=== PATIENT | female | born 1940 | race Caucasian/White ===

== ENCOUNTER → 2024-09-25 09:31 | Outpatient (REF) | payer OTHER, SELFPAY | LOC: RAD 09:31 | PROVIDERS: ATTENDING PHYSICIAN Student in an Organized Health Care Education/Training Program; FAMILY PHYSICIAN Family Medicine | DX: I35.0 Nonrheumatic aortic (valve) stenosis (principal); R09.89 Other specified symptoms and signs involving the circulatory and respiratory systems | CPT/HCPCS: 75572; Q9967 ==

== ENCOUNTER → 2024-10-01 11:15 | Day surgery (SDC) | payer OTHER, SELFPAY ==
[2024-10-01] VITALS (9 sets, daily range): BP systolic 121–168; BP diastolic 48–86
[2024-10-01 12:06] LABS: ALT (SGPT) 20 U/L (0-35); AST (SGOT) 31 U/L (14-36); Albumin 5.1 g/dl (3.5-5.0); Alkaline Phosphatase 98 U/L (38-126); Blood Urea Nitrogen 23 mg/dl (7-17); Calcium 11.3 mg/dl (8.4-10.2); Carbon Dioxide 25 mmol/L (22-30); Chloride 109 mmol/L (98-107); Glucose 114 mg/dl (70-99); Potassium 5.2 mmol/L (3.5-5.1); Sodium 145 mmol/L (135-145); Total Bilirubin 0.8 mg/dl (0.2-1.3); Total Protein 8.7 g/dl (6.3-8.2); eGFR > 60.00
--- NOTE | 2024-10-01 14:41 | ITS.CL.PN ---
Hardwood Floor Installation Helper - Procedure Note
Procedure
Procedure Note:
CARDIAC CATHETERIZATION REPORT
Date of Procedure: 10/01/2024
Referring: Dr. Dao Gibson MD
Indication: Symptomatic severe aortic stenosis
PROCEDURE(S)
1. right heart catheterization
2. left heart catheterization
3. coronary angiography
ACCESS
1. 6F right common femoral artery (closure: Perclose x1; note: right radial is too small for 6F access)
2. 5F right antecubital vein (closure: manual hemostasis)
CATHETERS
1. 5F [place]zy
2. 6F [place]
3. 6F JR4
4. 6F JL3.5
MODERATE SEDATION: 30 minutes of moderate sedation was utilized. An independent bilingual medical receptionist was present to assist with and help manage the patient's level of consciousness and physiologic status.
HEMODYNAMIC DATA
LV 192/12 (EDP 24) mmHg
AO 158/62 (mean 101) mmHg
RA 10 mmHg
RV 32/6 (EDP 12) mmHg
PA 37/17 (mean 25) mmHg
PCWP 18 mmHg
SaO2 97.0%
SvO2 75.0%
Hb 13.2 g/dL
CO/CI 4.57/3.17 L/min/m2
SVR 1594 dsc*-5
PVR 1.5 Wood units
Valve study: mean gradient 39.24 mmHg at HR 62 giving SVI 51 mL/m2 and CATRACHITA 0.80 cm2
CORONARY ANGIOGRAPHY
Dominance: Right
LM: Large, normal
LAD: Large vessel giving rise to a small D1 and small D2. There are mild luminal irregularities only
LCx: Large vessel giving rise to a small OM1 and large branching OM 2. There are trivial luminal irregularities only.
RCA: Moderate caliber vessel giving rise to a small RPDA. There is mild nonobstructive disease.
RADIATION: dose 182 mGy; DAP 11.9 Gy*cm2; fluoroscopy time 5.2 min
CONCLUSIONS
1. Nonobstructive coronary artery disease in a right dominant system as described
2. Mildly elevated biventricular filling pressures, mild pulmonary hypertension, and normal cardiac output
3. Severe normal flow aortic stenosis
RECOMMENDATIONS
1. Primary prevention of coronary artery disease
2. Proceed with TAVR evaluation and workup of lung masses identified on CT TAVR
Copy to: Dr. Dao Gibson MD (case planner); Dr. Xochilt Gross DO (PCP)
Signed: Sandro Lima MD, PhD
--- NOTE | 2024-10-01 16:27 | PTCARENOTE ---
Assuming care for pt. D/C instructions provided, pt and pt's daughter have numerous questions about d/c instructions. Betsy Mack notified and will be over to talk to pt and family and answer questions. Pt c/o R posterior thigh discomfort, RLE
repositioned and medicated with Tylenol. Pt's R groin WNL, soft, no bleeding, no hematoma, small area of ecchymosis noted at bottom of dressing. R brachial dressing C,D,I- no bleeding, no hematoma noted.
VSS. Pt tolerating po liquids. Purewick in place and pt voided.
--- NOTE | 2024-10-01 16:59 | PTCARENOTE ---
Dr Lima and HARISH Andrea, at pt's bedside answering questions.
--- NOTE | 2024-10-01 17:23 | PTCARENOTE ---
Pt ambulated to bathroom and voided. R groin site unchanged, no bleeding, no hematoma, ecchymosis unchanged. R brachial site WNL, no bleeding, no hematoma, no ecchymosis noted. D/C instructions given with good verbal feedback.
== END | disposition home or self-care (01) ==
LOC: CATH 11:15
PROVIDERS: ATTENDING PHYSICIAN Student in an Organized Health Care Education/Training Program; FAMILY PHYSICIAN Family Medicine; OTHER PHYSICIAN Internal Medicine Cardiovascular Disease
DX: I35.0 Nonrheumatic aortic (valve) stenosis (principal); I25.10 Atherosclerotic heart disease of native coronary artery without angina pectoris; I27.20 Pulmonary hypertension, unspecified; I10 Essential (primary) hypertension; E78.5 Hyperlipidemia, unspecified; E83.52 Hypercalcemia; R91.8 Other nonspecific abnormal finding of lung field
CPT/HCPCS: 99152; 99153; 80053; 93005; 93460; C1760; C1769; C1894; Q9967

== ENCOUNTER → 2024-10-09 10:49 | Outpatient (REF) | payer OTHER, SELFPAY | LOC: RAD 10:49 | PROVIDERS: ATTENDING PHYSICIAN Nurse Practitioner Acute Care; FAMILY PHYSICIAN Family Medicine | DX: I35.0 Nonrheumatic aortic (valve) stenosis (principal) | CPT/HCPCS: 74174; Q9967 ==

== ENCOUNTER 2024-12-17 05:28 | Inpatient (IN) | payer OTHER, SELFPAY ==
--- NOTE | 2024-12-08 08:33 | HPS.HSE ---
Family Physician
-
Family Physician: Xochilt Gross
Chief Complaint
-
SOB, LE edema
PreTAVR evaluation
History of Present Illness
Ms. Rizzo is a very pleasant 84 yof with a past medical history significant for , HT, HLD, osteoporosis, Paget's disease, and� uterine ca. Her most recent echocardiogram from 09/07/2024 is notable for an EF 70%, aortic valve P/M 71/46, CATRACHITA 0.7,
DI 0.25, trivial AI, moderate MAC, trace-mild MR, mild TR, PAP 42. Her echocardiogram from 10/01/2024 demonstrates nonobstructive CAD. During TAVR work-up lung masses were found on CT. Patient was recommended to follow up with pulmonology. From a
symptomatology standpoint, patient describes BAUGH while climbing stairs. She also states she has had increased LE edema.Patient will continue follow up with pulmonology in tandem with the heart team to develop a plan of care. Informed patient that
she will need life-long antibiotic prophylaxis for future dental procedures.
Assessed patient in preadmission testing and confirmed medication list. Will initiate 81 mg aspirin daily to including the morning of TAVR. Will premedicate for contrast allergy with 50 mg prednisone 13,7,1 hour before TAVR and Benadryl 50 mg 1 hour
before TAVR (prescription given). Ms. Rizzo will arrive to the [facility] at 0530. Reviewed the risks of the procedure as discussed in consult with Dr. Brizuela including ppm, stroke, and vascular injury. Allowed for and answered questions to
the best of my ability.
Medical History
Past Medical History
Past Medical History: Reports Cancer (endometrial), HTN, Valvular Disease (Aortic stenosis, moderate MAC), Psychiatric (depression) and Other (hyperlipidemia, hypercalcemia, bilateral carotid bruits, Pagets disease)
Past Surgical History: Reports Appendectomy, Gynocological (hysterectomy, oopherectomy), Orthopedic (carpal tunnel surgery, medial meniscus surgery, left femur surgery) and Other (cataract surgery)
Social History
Tobacco: Non-smoker
Alcohol: None
Drug: None
Personal:
Living: Alone
Employment: Retired
Family History
Family History: Hypertension and Other (heart disease)
Allergies / Home Medications
Allergies reflects when Allergies were last updated in [facility].
fosamax, actonel, meloxicam, shingrex, contrast dye
[facility]
Alivia Allergy(Fexofenadine HCl) 60 MG Tablet 1 tablet Orally Twice a day
Atenolol 100 MG Tablet 1 tablet Orally Once a day
Calcium + Vitamin D3(Calcium Carb-Cholecalciferol) 600-5 MG-MCG Tablet 1 tablet with a meal Orally bid
Felodipine ER 10 MG Tablet Extended Release 24 Hour 1 tablet Orally Once a day
Gemfibrozil 600 MG Tablet 1 tablet 30 minutes before morning and evening meals Orally Twice a day , Notes to Pharmacist: Lopid
Multivitamin(Multiple Vitamin) - Tablet 1 tablet Orally Once a day
Pravastatin Sodium 40 MG Tablet 1 tablet Orally Once a day
Tylenol , Notes to Pharmacist: prn
Aspirin 81 mg daily (initiated 12/08/2024)
Allergy/Medication List:
fosamax, actonel, meloxicam, shingrex, contrast dye
Review of Systems
-
A 12 point ROS was completed and negative except as noted: Yes
Constitutional: Reports Fatigue
Respiratory: Reports Other (BAUGH)
Physical Exam
Physical Exam
General: Well Developed, Well Nourished, No Apparent Distress and Comfortable
HEENT: NormoCephalic
Respiratory: Clear
Cardiac: Regular Rhythm and Murmur (III/ AISHA)
Breast: Deferred by me
Rectal: Deferred by Provider
Genito-urinary: Deferred by me
Musculoskeletal: Edema, Left Lower Extremity (trace) and Edema, Right Lower Extremity (Trace)
Skin: Warm and Dry
Neuro: Awake, Alert, Oriented and AO x 3
Psych: Calm
Data Reviewed
-
Diagnostic Radiology: Report Reviewed by me
CT Scan: Report Reviewed by me and Discussed with Physician (TAVR CT scan reviewed with the heart team)
Medical Tests (Nuc Med, Echo, EKG etc): Report Reviewed by me and Discussed with Physician (echocardiogram and cardiac catheterization reviewed with the heart team)
Lab Data: Labs Reviewed by me
Old Records: Reviewed
Impression/Plan
-
IMPRESSION/PLAN:
Aortic Stenosis
TF TAVR planned with Drs. Brizuela and Clarence utilizing a 23 mm S3.
Initiate 81 mg aspirin daily and continue including the morning of TAVR
Premedicate for contrast allergy (Rx given)
POD#1/#30 echocardiogram
Cardiac rehab consult.
Labs
-
Labs:
WBC 6.4 10^3/uL (4.8-10.8) 12/08/24 10:02
RBC 4.40 10^6/uL (4.20-5.40) 12/08/24 10:02
Hgb 13.6 g/dL (12.0-16.0) 12/08/24 10:02
Hct 38.4 % (37.0-47.0) 12/08/24 10:02
Plt Count 313 10^3/uL (130-400) 12/08/24 10:02
Sodium 143 mmol/L (135-145) 12/08/24 10:02
Potassium 3.9 mmol/L (3.5-5.1) 12/08/24 10:02
Chloride 109 mmol/L (98-107) H 12/08/24 10:02
Carbon Dioxide 21 mmol/L (22-30) L 12/08/24 10:02
BUN 20 mg/dl (7-17) H 12/08/24 10:02
Creatinine 0.8 mg/dL (0.6-1.0) 12/08/24 10:02
eGFR > 60.00 08/19/25 10:02
Glucose 101 mg/dl (70-99) H 12/08/24 10:02
Calcium 10.7 mg/dl (8.4-10.2) H 12/08/24 10:02
Ead-S-Bytpnvrxtit Pept 1240 pg/ml 12/08/24 10:02
Albumin 5.0 g/dl (3.5-5.0) 12/08/24 10:02
[2024-12-08 09:45] VITALS: BMI 25.1
[2024-12-08 10:25] LABS: Hematocrit 38.4 % (37.0-47.0); Hemoglobin 13.6 g/dL (12.0-16.0); Mean Corp Hgb Conc. 35.4 g/dL (33.0-37.0); Mean Corpuscular Volume 87.3 fL (81.0-99.0); Nucleated Red Blood Cells % 0 %; Platelet Count 313 10^3/uL (130-400); Red Cell Dist. Width 12.8 % (11.5-14.5)
[2024-12-08 10:34] LABS: INR 1.09; PT 14.4 Sec (11.4-14.6)
[2024-12-08 10:40] LABS: Urine Character Slightly Cloudy (Clear)
[2024-12-08 11:12] LABS: ALT (SGPT) 16 U/L (0-35); AST (SGOT) 23 U/L (14-36); Albumin 5.0 g/dl (3.5-5.0); Alkaline Phosphatase 84 U/L (38-126); Blood Urea Nitrogen 20 mg/dl (7-17); Calcium 10.7 mg/dl (8.4-10.2); Carbon Dioxide 21 mmol/L (22-30); Chloride 109 mmol/L (98-107); Estimated Creatinine Clearance 38 ml/min; Glucose 101 mg/dl (70-99); Potassium 3.9 mmol/L (3.5-5.1); Sodium 143 mmol/L (135-145); Total Protein 7.7 g/dl (6.3-8.2); eGFR > 60.00
[2024-12-08 11:22] LABS: Glycohemoglobin (HgbA1c) 4.9 % (4.0-5.6)
[2024-12-08 11:31] LABS: Urine White Cell 40-50 /HPF (0-5)
--- NOTE | 2024-12-08 11:33 | CM ---
Met with Mrs. Rizzo in [facility]. She states prior to admission she readies alone in a three story home with four steps to enter. She states she has a full flight of steps to get to bedroom/full bathroom. She states she has a powder room on the
first floor. She states prior to admission she was independent with ambulation and adls. She states she does not have any DME in the home. She states she has a prescription. She states she is planning on staying with her daughter Romana for the
weekend after her TAVR. Address for daughter Danyelle is [address] [place] [address]. [phone], Her phone number is ([phone]). The discharge plan is to stay withher daughter over the weekend and a home visit by the Transitional Care Nurse when
medically stable.
We reviewed pre-op and post-op routines. We reviewed the shower instructions. She has the soap, written instructions and the TAVR Educational Booklet. We also reviewed restrictions including driving and lifting restrictions. We discussed a home
visit by the Transitional Care Nurse. She is agreeable to a home visit. The plan is for TAVR on November.
[2024-12-17] VITALS (20 sets, daily range): BP systolic 89–148; BP diastolic 46–75; BMI 24.7
[2024-12-17] MEDS: BENADRYL 50 MG PO (06:15)
[2024-12-17] MEDS: DELTASONE 50 MG PO (06:15)
--- NOTE | 2024-12-17 06:24 | W.CVOR.SURPR ---
CVOR Surgeon Immed Pre Op
-
I have examined this patient prior to performance of the scheduled procedure.
The patient's condition is unchanged from the time of the dictated/written History and
Physical and the patient is able to undergo the scheduled procedure.
Pt. for TF TAVR this AM
Pt. decided she DOES NOT want surgical rescue
Would be amenable to ACLS (CPR & shocks) if necessary
--- NOTE | 2024-12-17 07:16 | PTCARENOTE ---
admitted pt into 2260. pt confirmed NPO status and 2 CHG showers. pt took ASA in am. pt clipped and washed with CHG wipes. Admission questions and med rec completed. ABO sent. PIV started. awaiting general laborer.
[2024-12-17 08:26] LABS: ACT-LR - POC 253 Seconds (116-155)
--- NOTE | 2024-12-17 08:49 | ITS.CL.PN ---
Rubber Splicer - Procedure Note
Procedure
Procedure Note:
TRANSCATHETER AORTIC VALVE REPLACEMENT REPORT
Date of Procedure: 12/17/2024
Referring: Dr. Dao Gibson MD
Indication: symptomatic severe aortic valve stenosis
Operators: Sandro Lima MD, PhD (interventional cardiology); Dr. Angelo Brizuela MD (CT surgery)
Anesthesia: conscious sedation provided by the anesthesia staff
PROCEDURE: transfemoral, transcatheter aortic valve replacement with an Quiñones MARGRET 3 Ultra RESILIA 20 mm valve +1.5 cc additional volume
ACCESS:
1. 6F left femoral vein (closure: manual hemostasis) - Ultrasound was utilized for vascular access. The vessel was visualized under ultrasound and noted to be patent. An image of the vessel was stored permanently in the patient's medical record.
Under direct ultrasound guidance, vascular access was obtained using a modified Seldinger technique and a 6 Cook Islander sheath was placed.
2. 6F left common femoral artery (closure: Angioseal) - Ultrasound was utilized for vascular access. The vessel was visualized under ultrasound and noted to be patent. An image of the vessel was stored permanently in the patient's medical record.
Under direct ultrasound guidance, vascular access was obtained using a modified Seldinger technique and a 6 [place] Islander sheath was placed.
3. 14F right common femoral artery (closure: Perclose x2) - Ultrasound was utilized for vascular access. The vessel was visualized under ultrasound and noted to be patent. An image of the vessel was stored permanently in the patient's medical
record. Under direct ultrasound guidance, vascular access was obtained using a modified Seldinger technique and a 8 [place] Islander sheath was placed.
HEMODYNAMIC DATA
LVEDP 18 mmHg
PROCEDURE NARRATIVE:
The patient was prepped and draped in standard sterile fashion. Conscious sedation was provided by the anesthesia staff. 6F left femoral vein and left common femoral artery access was obtained with ultrasound guidance using micropuncture technique
with verification of appropriate arteriotomy location via hand injection angiography. A temporary venous pacing wire was advanced via the left femoral vein to the right ventricle under fluoroscopic guidance with appropriate capture verified. A 5F
pigtail catheter was advanced via the left common femoral artery and seated in the right coronary cusp. Angiography was performed to verify the co-planar angle.
8F right common femoral artery access was obtained with ultrasound guidance using micropuncture technique with verification of appropriate arteriotomy location via hand injection angiography. The arteriotomy was preclosed with two Perclose sutures
followed by replacement of the 8F sheath. Using an AL1 catheter, an Amplatz Extrastiff wire was placed in the descending thoracic aorta. The 8F sheath was removed and the [ ]F Quiñones E-sheath was inserted over the Extrastiff wire and into the
descending aorta. Heparin 4500 units was given. The AL1 catheter was re-advanced through the E-sheath to the level of the ascending aorta. The Extrastiff wire was exchanged for a soft tipped straight wire which was used to cross the aortic valve and
deposit the AL1 in the LV apex. A J-wire was used to exchange the AL1 for a pigtail catheter in the LV and LVEDP was measured. An Amplatz Extrastiff wire with curved proximal end was advanced through the pigtail catheter and seated in the LV apex.
ACT was checked and confirmed to be >300 seconds.
The valve was brought to the table with orientation and deployment contrast volume verified. The valve was advanced over the Extrastiff wire and into the descending aorta. The balloon was withdrawn, and the valve was mounted on the balloon. The
valve was advanced over the aortic arch and into the aortic valve annulus. The pusher device was withdrawn. Low volume aortography confirmed valve positioning. The valve was deployed during rapid ventricular pacing with an additional 1 cc of volume
above nominal. The balloon was walked back to the descending aorta while leaving the wire in place. The patient was resuscitated by anesthesia with recovery of adequate blood pressure. Telemetry demonstrating sinus rhythm. Aortography demonstrated
good valve positioning, adequate coronary filling, and mild aortic valve insufficiency, but low diastolic BP (~40 mmHg) raising concern for more significant PVL. Echocardiography confirmed mild PVL. Mean valve gradient was 7 mmHg. Given the
significantly depressed diastolic BP with at least mild PVL on angio, we proceeded with BAV using the deployment balloon with an addition 0.5 cc volume (1.5 cc above nominal) under rapid pacing. This resulted in mild improvement in the degree of AI
on both angio and echo. Mean gradient and diastolic blood pressure remained unchanged. The valve deployment system was removed.
The Quiñones E sheath was removed, and hemostasis obtained with the two Perclose sutures. Protamine 30 mg was given. Aortoiliac angiography demonstrated no evidence of iliofemoral dissection/perforation and good runoff below the common femoral artery
bilaterally. The pacemaker and the pigtail catheter were removed. The left femoral artery sheath was removed using a 6F Angioseal. The left femoral venous sheath was removed with manual pressure.
RADIATION: dose 153 mGy; DAP 14.8 Gy*cm2; fluoroscopy time 8.2 min
CONCLUSION: successful placement of an Quiñones MARGRET 3 Ultra RESILIA 20 mm transcatheter aortic valve deployed with +1.5 cc additional volume with a right transfemoral approach with no acute complications
Copy to: Dr. Dao Gibson MD (outside b2b sales); Dr. Xochilt Gross DO (PCP)
Signed: Sandro Lima MD, PhD
--- NOTE | 2024-12-17 08:50 | W.IMMPOSTOP ---
Surgical Immed Post Op Note
-
[id number]
STRUCTURAL HEART PROCEDURE NOTE: TAVR
Preoperative Dx:
Severe aortic stenosis (P/M: 71/46mmHg, CATRACHITA 0.7, DI 0.25, trivial AI)
Lung masses
HTN/HLD
OA
Endometrial CA
Depression
B/L carotid bruits
Paget's disease
Hypercalcemia
Arthritis
Postoperative Dx:
Same
Procedures:
1) L VICE PRESIDENT RESEARCH and L CFV access w/ tactile, U/S, and fluoroscopic guidance, Seldinger technique, limited L VICE PRESIDENT RESEARCH angiography, long 6Fr sheath placement x 2
2) Placement of temporary TV pacing wire w/ threshold testing
3) Placement of pigtail catheter in RCC w/ limited aortography x 2 w/ confirmation/subtle adjustment of coplanar valve deployment angle
4) R VICE PRESIDENT RESEARCH access w/ tactile, U/S, and fluoroscopic guidance, Seldinger technique, 8Fr dilator placement, limited angiography, 8Fr sheath placement
5) Placement of Quiñones E-sheath via R VICE PRESIDENT RESEARCH access (systemic heparinization)
6) Wire purchase across stenotic AV (AL-1, soft-tip straight, LVEDP assessment (18mmHg), extra-stiff)
7) Inspection of TAVR valve
8) R TF TAVR w/ placement of 20mm (+1) MARGRET 3 RESILIA valve
9) Completion aortography, completion TTE - mid-mild PVL
10) Post-TAVR BAV (+1.5) w/ reduction of PVL to soft-mild, mean gradient 8mmHg
11) Removal of bkesl-jnygamgd-uhymzl/Quiñones E-sheath w/ R VICE PRESIDENT RESEARCH mgmt w/ perclose sutures x 2; manual pressure
12) Completion angiography
13) Removal of temporary pacing wire, subsequent removal of L CFV sheath; manual pressure
14) Removal L VICE PRESIDENT RESEARCH sheath w/ mgmt w/ 6Fr angioseal; manual pressure (protamine 30mg)
Jewel Bearing Maker:
Dr. Sandro Lima
Cardiac Surgeon:
Dr. Angelo Brizuela
Anesthesia:
MAC & local to B/L groins
Cath Data:
Start: 47hrs, Deploy: 816hrs, End: 841hrs
FT: 8.2min, mGy: 153, DAP: 14.8, Contrast: 102mL
Post-TTE: mean gradient 8mmHg, mild PVL
Complications:
None
Implants:
Quiñones SAPIEN3 20mm RESILIA; [id number]
Perclose x 2 to R VICE PRESIDENT RESEARCH
6Fr angioseal x 1 to L VICE PRESIDENT RESEARCH
Condition:
Stable/guarded to recovery
--- NOTE | 2024-12-17 08:51 | CM ---
pt for TAVR today, cm following
--- NOTE | 2024-12-17 09:31 | PTCARENOTE ---
Patient received from CCL s/p TF TAVR procedure. NSR w/1st degree via cm, SaO2 @ 96% on 4lnc. B/L groin sites stable, bleeding noted, distal pulses weakly palp. Slight ecchymosis/petechiae noted to upper L thigh, R puncture area. Patient sleepy but
arousable, AUGUSTINE, denies pain - updated to plan of care for the day, in agreement. See work list for full assessment and interventions performed.
[2024-12-17] MEDS: ANCEF 10 IV ×2 (09:34→09:35)
--- NOTE | 2024-12-17 11:09 | PTCARENOTE ---
JORY Roger updated to rhythm.
--- NOTE | 2024-12-17 13:10 | PTCARENOTE ---
Patient assisted oob to chair, tolerated well. VSS. B/L groin sites unchanged.
[2024-12-17] MEDS: ANCEF 5 IV (14:20)
--- NOTE | 2024-12-17 16:03 | PTCARENOTE ---
VS obtained, assessment unchanged. Patient oob in chair, reading, denies pain.
--- NOTE | 2024-12-17 20:22 | PTCARENOTE ---
Assumed care of patient at 1900. Patient OOB to chair, ambulating in room without assistance, Vital Signs stable Alert and oriented X 4, Follows all commands, denies pain at this time. Heartrate 73, BP stable 146/57, pulses +, On Roomair, 97%
Lungs clear bilaterally, IS 1500, BS present ate 100% of dinner, Voids without issue. Grion sites, CDI, no hemotomas. see workflow for more detail assesment data.
[2024-12-17] MEDS: PRAVACHOL 40 MG PO (22:03)
[2024-12-17] MEDS: NORVASC 10 MG PO (22:03)
[2024-12-17] MEDS: TENORMIN 100 MG PO (22:04)
--- NOTE | 2024-12-17 22:32 | PTCARENOTE ---
patient bathed,CHG bath completed, ambulated oin room, denture care comp-leted, Vital sign stable, groin site clena dry and intact
[2024-12-18] VITALS (7 sets, daily range): BP systolic 126–144; BP diastolic 56–67; PULSE 70; O2SAT 51–95; BMI 25.1
--- NOTE | 2024-12-18 00:18 | W.PN.CT ---
Today's Communication / Plan
-
-No overnight events
-short episode of sinus bradycardia to the 50s noted post op, resolved spontaneously and currently NSR in the 70s
-s/p macrobid for E. coli UTI
-ASA only per Dr. Brizuela
-continue pravastatin, amlodipine, can likely resume atenolol
-OOB/IS
Assessment / Plan
-
Severe (P/M 71/46 mmHg, CATRACHITA 0.7, DI 0.25) s/p R TF TAVR (Ramya 3 20 mm Resilia) with Dr. Brizuela on 12/17/24 POD #1
post ALAN mild PVL, MG 7-8 mmHg
HTN
HLD
OA
Lung masses
endometrial CA
depression
paget's disease
hypercalcemia
Pre-op E. coli UTI
acute post op respiratory insufficiency
acute post op sinus bradycardia, resolved spontaneously
Subjective
-
Date of Service: December 18, 2024
Objective Data
-
PT 14.4 Sec (11.4-14.6) 12/08/24 10:02
INR 1.09 12/08/24 10:02
Vital Signs
Vital Signs
Temp Pulse Resp BP Pulse Ox
98.2 F 73 18 142/106 97
12/17/24 15:58 12/17/24 22:04 12/17/24 20:30 12/17/24 22:04 12/17/24 20:38
CT Intake/Output/Weight
12/17/24 12/17/24 12/18/24
06:59 18:59 06:59
Intake Total 480 / 680 200 / 680
Output Total 775 / 775
Balance -295 / -95 200 / -95
SaO2: 97
Physical Exam
-
General: Awake, Oriented and AOx3
Cardiovascular: Regular rate & rhythm and No Murmurs
Respiratory: Clear and Equal
Incision: Clean, Dry, Intact and Other (groin access soft)
Extremities: No Edema
Data Reviewed
-
Lab Results: Results Reviewed
Medications: Active Meds Reviewed
CT Scan: Report Reviewed
ECG: Report Reviewed
[2024-12-18] MEDS: TYLENOL 650 MG PO (04:18)
[2024-12-18 04:25] LABS: Hematocrit 32.7 % (37.0-47.0); Hemoglobin 11.8 g/dL (12.0-16.0); Mean Corp Hgb Conc. 36.1 g/dL (33.0-37.0); Mean Corpuscular Volume 87.4 fL (81.0-99.0); Platelet Count 266 10^3/uL (130-400); Red Cell Dist. Width 13.1 % (11.5-14.5)
[2024-12-18 04:49] LABS: Blood Urea Nitrogen 28 mg/dl (7-17); Calcium 9.6 mg/dl (8.4-10.2); Carbon Dioxide 23 mmol/L (22-30); Chloride 111 mmol/L (98-107); Estimated Creatinine Clearance 37 ml/min; Glucose 110 mg/dl (70-99); Potassium 3.6 mmol/L (3.5-5.1); Sodium 142 mmol/L (135-145); eGFR > 60.00
--- NOTE | 2024-12-18 05:27 | PTCARENOTE ---
Patient resting, given Tylenol for back pain, Labs drawn and sent, ECG done, Xray completed.
--- NOTE | 2024-12-18 07:56 | W.PN.ANS.POP ---
Anesthesia Post Operative
- Anesthesia Post Op Note
Vital Signs Stable-See Nursing Note: Yes
Airway Patent: Yes
Adequate Pain Control: Yes
Change in Mental Status: No
Current Postoperative Nausea & Vomiting: No
Anesthesia Complications: No
General Anesthetic Recall: No
Unplanned Admission: No
Post Op Hydration Adequate: Yes
--- NOTE | 2024-12-18 08:00 | PTCARENOTE ---
pt received from previous RN, oriented, [facility], +hearing aids. SB/SR w/ prolonged QT on the monitor, HR 50-60s. SBP 130s. palpable radial pulses, weakly palpable DPs. pt on RA, 97% POX. lungs clear. IS encouraged. denies cough or SOB. abdomen s/n,
denies n/v. +BS. diet tolerated well. voids. ambulates independently. b/l groins intact, old drainage in place, no s/s of hematoma. +L thigh petechiae, XANDER Rivera aware. PIV x2. pt denies pain. see worklist for VS, I&O, and assessment.
[2024-12-18] MEDS: ASPIR LOW (ENTERIC COATED) 81 MG PO (08:25)
[2024-12-18] MEDS: KCL 40 MEQ PO (08:25)
--- NOTE | 2024-12-18 11:08 | W.DCSUMMARY ---
Discharge Summary
Discharge Data
Date of Admission: 12/17/24
Date of Discharge: 12/18/24
-
Pending Results: No
Hospital Course
Primary care physician: Xochilt Gross
Outpatient dehydrogenation converter helper: Dao Gibson
Inpatient consultants: [facility]
Procedures:
1. 12/17/24 right transfemoral TAVR #20 +1 Quiñones S3 by Drs. Musa Brizuela & Patrick Lima
Primary Diagnosis:
1. Severe aortic stenosis
2. Chronic heart failure with preserved EF
Secondary Diagnoses:
1. Hypertension
2. Hyperlipidemia
3. Osteoarthritis
4. Lung masses
5. Endometrial cancer
6. Depression
7. Paget's disease
8. Hypercalcemia
9. Preoperative UTI, treated with Macrobid
10. Postop sinus bradycardia and first-degree AV block, both resolved
HPI: Patient is an 84-year-old female with known progressive aortic stenosis that is now severe. Most recent echo demonstrates hyperdynamic LVEF with peak and mean gradients of 71/46 mmHg respectively. Subsequent left heart catheterization
demonstrated no significant coronary disease. Patient was therefore referred for TAVR.
Hospital course: Patient was brought in electively on 12/17/2024 where she underwent a right transfemoral TAVR by Drs. Brizuela and Bernard without any complications. She was transferred to recovery without any vasoactive drips, postop EKG demonstrated
sinus bradycardia with a new first-degree AV block. She remained hemodynamically stable overnight, first-degree AV block has resolved, heart rate 67. Follow-up echo demonstrates a well-seated valve with a mean gradient of 5 and trace AI. Patient
is discharged to home with close follow-up with the transitional care nurse [facility] who will see her in a few days.
Home medication changes: New aspirin 81 mg daily for TAVR valve. Continue all other home meds.
Discharge Plan
-
Patient Disposition: Home (Routine Discharge)
Discharge Diagnosis/Procedures: right TF TAVR
Condition: Good
Diet: Low Fat, Low Cholesterol and 2 Gram Sodium
Activity: As tolerated
Driving Restrictions: No driving for 1 week
Bathing Restrictions: OK to Shower
Others Tests: 30-day follow up echocardiogram: 01/19/2025 @ 2:00 at the [facility].
Other Services: Cardiac Rehab
Wound Care: No lotions, powders, or creams to puncture sites
Specialty Instructions: Weigh Daily- Call MD for wt gain/loss 3 lbs overnight/5 lbs in 1 week
Referrals:
CT Transitional Care Nurse [Outside]
Referral Note: The CT Transitional care nurse will visit you at your daughters home in [place] and will call you to set up a visit in 1-2 days.
Xochilt Gross DO [Family Provider, Family Practice]
Dao Gibson MD [Active, Cardiology] - 01/18/25 1:00 pm
Prescriptions:
New
aspirin 81 mg Tablet,Delayed Release (Dr/Ec)
81 mg PO DAILY Qty: 0 0RF
acetaminophen 325 mg Tablet
650 mg PO Q6HPRN PRN (Reason: NELSON, mild pain, or fever >101F) Qty: 0 0RF
Continued
atenolol 100 mg Tablet
100 mg PO HS
felodipine 10 mg Tablet Extended Release 24 Hr
10 mg PO HS
multivitamin Tablet
1 tab PO DAILY Qty: 0 0RF
pravastatin 40 mg Tablet
40 mg PO HS Qty: 0 0RF
calcium carbonate-vitamin D3 600 mg-5 mcg (200 unit) Tablet
1 tab PO BID Qty: 0 0RF
gemfibrozil [Lopid] 600 mg Tablet
600 mg PO BID Qty: 0 0RF
Discharge Orders:
Discharge Patient (As Directed); Ordered 12/18/24
Ordered By: Nicole Dobbs
Care Plan Goals
Care Plan Goals:
Problem: Readiness for enhanced knowledge related to diagnosis and treatment plan
Goal: Understand your diagnosis and treatment plan needs, including medications if applicable.
Instructions: Know your diagnosis, underlying causes and treatment plan options, including medications if applicable. Consult with your health care team to learn about your diagnosis and treatment plan, including medications if applicable.
Discharge Date and Time
Discharge Date/Time: 12/18/24 13:11
Print Language: WELSH
--- NOTE | 2024-12-18 11:37 | PTCARENOTE ---
pt VSS, no changes in assessment. b/l groins remain unchanged, no s/s of bleeding or hematoma. ambulates independently. ECHO completed, stairs completed w/ CR. denies pain.
--- NOTE | 2024-12-18 12:37 | W.PN.CD ---
Today's Communication / Plan
-
routine post TAVR care
ok to discharge
Impression / Plan
-
84 year old woman with severe symptomatic s/p TF TAVR (Quiñones Ramya S3 Ultra Resilia 20 mm valve with +1.5cc air).
No overnight events. Feels well today.
Labs reviewed and unremarkable.
ECG sinus rhythm
Tele no heart block
Echo with mean gradient 5 mmHg, no PVL
Plan: routine TAVR care with ASA monotherapy, 1 month follow up echo; will follow with Dr. Dao Gibson.
Physical Exam
Vital Signs/Labs
Vital Signs
Temp Pulse Resp BP Pulse Ox
36.6 C 63 18 126/67 97
12/18/24 11:26 12/18/24 11:24 12/18/24 11:26 12/18/24 11:24 12/18/24 11:26
12/17/24 12/18/24 12/19/24
06:59 06:59 06:59
Actual Weight 53.6 kg 54.5 kg
12/18/24 04:05
12/18/24 04:05
PT 14.4 Sec (11.4-14.6) 12/08/24 10:02
INR 1.09 12/08/24 10:02
12/08/24
10:02
Obv-[id number]-[id number] Pept 1240
Physical Exam
Constitutional: Comfortable
Cardiovascular: Rhythm & rate is regular
Respiratory: Respiratory effort normal
Neuro/Psych: AO x 3
Data Reviewed
-
Date of Service: December 18, 2024
Medical Decision Making: Reviewed Test Results
EKG: Tracing Personally Visualized and interpreted
Echo: Tracing Personally Visualized and interpreted
Labs: Labs Reviewed by me
--- NOTE | 2024-12-18 12:54 | PTCARENOTE ---
Addendum entered by Dayanara Hogue RN 12/18/24 12:57:
b/l groin dressings removed, sites NABIL.
Original Note:
pt discharged home w/ daughter, discharge instructions reviewed w/ patient and daughter, questions answered. IVs and tele dc'd. +ecchymosis where L PIV was, area marked, pressure held, no s/s of hematoma. XANDER Rivera aware, pressure dressing applied,
area marked. pt instructed to call if worsens. pt dressed self. pt left w/ all belongings via wheelchair w/ daughter.
== END 2024-12-18 13:11 | disposition home or self-care (01) | DRG 267 ==
LOC: CVICU 05:28
PROVIDERS: Nurse Practitioner; ADMITTING PHYSICIAN Thoracic Surgery (Cardiothoracic Vascular Surgery); CONSULT PHYSICIAN Student in an Organized Health Care Education/Training Program; FAMILY PHYSICIAN Family Medicine; OTHER PHYSICIAN Internal Medicine Cardiovascular Disease
PROC: 02RF38Z Replacement of Aortic Valve with Zooplastic Tissue, Percutaneous Approach (ICD-10-PCS; 2024-12-17)
DX: I35.0 Nonrheumatic aortic (valve) stenosis (principal); I50.32 Chronic diastolic (congestive) heart failure; N39.0 Urinary tract infection, site not specified; E78.5 Hyperlipidemia, unspecified; I11.0 Hypertensive heart disease with heart failure; M81.0 Age-related osteoporosis without current pathological fracture; M88.9 Osteitis deformans of unspecified bone; F32.A Depression, unspecified; R91.8 Other nonspecific abnormal finding of lung field; M19.90 Unspecified osteoarthritis, unspecified site; E83.52 Hypercalcemia; I25.10 Atherosclerotic heart disease of native coronary artery without angina pectoris; I44.0 Atrioventricular block, first degree; R00.1 Bradycardia, unspecified; R06.89 Other abnormalities of breathing; R09.89 Other specified symptoms and signs involving the circulatory and respiratory systems; B96.20 Unspecified Escherichia coli [E. coli] as the cause of diseases classified elsewhere; Z79.82 Long term (current) use of aspirin; Z79.899 Other long term (current) drug therapy; Z85.42 Personal history of malignant neoplasm of other parts of uterus
CPT/HCPCS: 33361; 36415; 71045; 71046; 80048; 80053; 81003; 81015; 82248; 83036; 83880; 85025; 85027; 85347; 85610; 86850; 86900; 86901; 87070; 87086; 87088; 87186; 93005; 93308; 93321; 93325; C1760; C1769; C1894; Q9967